=== PATIENT | female | born 1985 | race Caucasian/White ===

== ENCOUNTER 2023-04-09 09:19 | Emergency (ER) | payer OTHER, SELFPAY ==
[2023-04-09] VITALS (7 sets, daily range): BP systolic 108–142; BP diastolic 66–81
--- NOTE | 2023-04-09 09:38 | ED.GENMED ---
History of Present Illness
General
Chief Complaint: Abdominal Pain
Source: patient
Exam Limitations: none
Time Seen by Provider: 04/09/23 09:29
Nursing documentation reviewed up to this point in time: agreed with
Travel History
Have you had any contact with someone who has COVID-19?: No
Do you have any symptoms of coronavirus? Fever > 100 degrees, chills, cough, shortness of breath, sore throat, loss of taste or smell, muscle aches, or headache?: No
History of Present Illness
History of Present Illness:
Patient presents to ED secondary to persistent lower abdominal pain associated with nausea, vomiting, and diarrhea. Abdominal pain described as crampy, nonradiating, without any alleviating or exacerbating factors. Denies fever or chills. Denies
trauma. Denies difficulty with urination. Denies loss of appetite. Denies recent illness. Denies recent change in medications or diet. Denies previous history of similar symptoms. Patient does have history of cervical cancer, which was treated
last year with radiation therapy only. As a result, patient has not had her menstrual cycle since last summer. Patient is currently cancer free and not receiving any maintenance medication.
Past History
Past History
ED Past Medical History: Other (Anemia)
ED Past Surgical History: None
Social History
Tobacco: Non-smoker
Drug: None
Living: with family
Employment: Employed
Review of Systems
Review of Systems
Allergies reviewed?: Yes
All Other Systems: ROS reviewed and negative except as documented in HPI and ROS
Constitutional: Reports no symptoms; Denies fever
Respiratory: Reports no symptoms
Cardiac: Reports no symptoms
ABD/GI: Reports abdominal pain, nausea, vomiting and diarrhea
: Reports no symptoms
Musculoskeletal: Reports no symptoms
Skin: Reports no symptoms
Neurological: Reports no symptoms
Phy Exam
Physical Exam
Physical Exam:
Physical Exam
General: mild distress, not acutely ill. afebrile
Head: nc/at. eomi
Neck: supple. no meningeal signs.
Heart: s1/s2 regular rate and rhythm, no murmur. equal radial pulses.
Lungs: no acute respiratory distress. clear bilaterally
Abdomen: normal bowel sounds. no focal tenderness to palpation. no distention
Neuro: alert and oriented. no focal neurological deficits
Skin: no rash
Psychiatric: well kept. interactive and cooperative
Extremities: no edema. no calf tenderness.
Course
Orders/Labs/Results
Orders:
Orders
04/09/23 09:37
US Pelvis W Transvag Combined Urgent
Comment:
Reason For Exam: RLQ pain
04/09/23 09:38
0.9% Sodium Chloride 500 ml [Nss] 500 ml IV BOLUS
Test Result ONCE
04/09/23 09:57
Basic Metabolic Panel Urgent
Complete Blood Count/With Diff Urgent
HCG, Serum Qualitative Screen Urgent
Urinalysis Reflex To Culture Urgent
Date Specimen was Collected: 04/09/23
Time Specimen was Collected: 09:55
Urine Microscopic Reflex Cult Urgent
04/09/23 10:51
Ketorolac [Toradol] 15 mg IV NOW STA
Abnormal Lab Results
04/09/23
09:57
WBC 4.6 L 10^3/uL
(4.8-10.8)
RBC 4.01 L 10^6/uL
(4.20-5.40)
Hct 36.4 L %
(37.0-47.0)
MCH 33.2 H pg
(27.0-31.0)
Absolute Lymphs (auto) 0.5 L 10^3/uL
(1.2-3.4)
Neutrophils % 83.5 H %
(42.2-75.2)
Lymphocytes % 11.2 L %
(20.5-51.1)
Glucose 160 H mg/dl
(70-99)
Leukocyte Esterase Rfl Trace A
(Negative)
Urine RBC 3-6 A /HPF
(0-2)
Urine Bacteria (Reflex) Few A
(Negative)
04/09/23 09:57
04/09/23 09:57
Vital Signs
Initial and Last Documented VS:
Initial Vital Signs
Temp Pulse Resp BP Pulse Ox
99.1 F 73 16 142/81 97
04/09/23 09:22 04/09/23 09:22 04/09/23 09:22 04/09/23 09:22 04/09/23 09:22
Last Documented Vital Signs
Temp Pulse Resp BP Pulse Ox
99.1 F 62 16 114/66 97
04/09/23 09:22 04/09/23 15:19 04/09/23 09:22 04/09/23 15:19 04/09/23 13:30
MDM/Problems Addressed
MDM/Problems Addressed:
Patient with an unremarkable workup in ED, including blood work and pelvic ultrasound. Patient reports significant treatment symptoms after treatment. Repeat abdominal exam: Soft and nontender. History and exam consistent with likely
musculoskeletal pain versus viral illness. Patient will be discharged home in stable condition, with recommendation to follow-up with PCP for reevaluation, or return to ED with worsening symptoms, i.e. fever/worsening pain/vomiting. Patient
expresses understanding at time of discharge, to the care of her .
*Critical Care Note
Total Time (30-74mins, 75-104mins- exclusive of procedures): Not Applicable
ED Attending Note
-
Portions of this chart may have been created with voice recognition software.� Occasional wrong word or��sound alike� substitutions may have occurred due to the inherent limitations of voice recognition software.
Discharge Plan
Departure
Patient Disposition: Home (Routine Discharge)
Date of Disposition: 04/09/23
Time of Disposition: 15:09
Patient with high blood pressure during this ER visit?: Yes
Condition: Good
Discharge Problem:
Abdominal pain
Instructions: Abdominal Pain
Prescriptions:
No Action
multivitamin [One-A-Day Essential] 1 EACH tablet
1 ea PO QPM
sertraline 25 MG tablet
50 mg PO QPM
Iron
1 tab PO QPM
Referrals:
Clau Echols MD [Family Provider] -
Activity Restrictions/Additional Instructions:
As discussed, please follow-up with your primary care physician with any further concerns. Please return to ED with worsening symptoms, i.e. fever/worsening pain/vomiting.
Interventions
Interventions:
*Risk Screen - Suicide Last Done: 04/09/23 09:22
*General Assessment Last Done: 04/09/23 09:59
*Neglect/Abuse Screening Last Done: 04/09/23 09:22
ED- Fall Risk Assessment Last Done: 04/09/23 10:32
*ED COVID-19 Vaccine History Last Done: 04/09/23 09:22
*Nursing Disposition Last Done: 04/09/23 15:19
ZP-Mlnavw-Krgbhmyzzz Assessment Last Done: 04/09/23 09:59
Discharge Date and Time
Discharge Date/Time: 04/09/23 15:20
[2023-04-09] MEDS: NSS 500 IV (09:54)
[2023-04-09 10:06] LABS: % Basophils 0.2 % (0-2); % Eosinophils 0.6 % (0-6); % Immature Granulocytes 0.2 % (0-0.5); % Lymphocytes 11.2 % (20.5-51.1); % Monocytes 4.3 % (1.7-9.3); % Neutrophils 83.5 % (42.2-75.2); Absolute Lymphocytes 0.5 10^3/uL (1.2-3.4); Absolute Monocytes 0.2 10^3/uL (0.1-0.6); Absolute Neutrophils 3.9 10^3/uL (1.4-6.5); Hematocrit 36.4 % (37.0-47.0); Hemoglobin 13.3 g/dL (12.0-16.0); Mean Corp Hgb Conc. 36.5 g/dL (33.0-37.0); Mean Corpuscular Hgb 33.2 pg (27.0-31.0); Mean Corpuscular Volume 90.8 fL (81.0-99.0); Mean Platelet Volume 8.3 fL (7.4-10.4); Nucleated Red Blood Cells % 0 %; Platelet Count 207 10^3/uL (130-400); Red Blood Cell Count 4.01 10^6/uL (4.20-5.40); Red Cell Dist. Width 11.5 % (11.5-14.5); White Blood Cell Count 4.6 10^3/uL (4.8-10.8)
[2023-04-09 10:08] LABS: Urine Albumin Negative (Neg - Trace); Urine Bilirubin Negative (Negative); Urine Character Clear (Clear); Urine Color Yellow; Urine Glucose Negative (Negative); Urine Ketone Negative (Negative); Urine Leukocyte Trace (Negative); Urine Nitrite Negative (Negative); Urine Occult Blood Negative (Negative); Urine Urobilinogen Negative (Neg - 1+)
[2023-04-09 10:14] LABS: HCG, Serum Qualitative Screen Negative
[2023-04-09 10:16] LABS: Blood Urea Nitrogen 17 mg/dl (7-17); Carbon Dioxide 29 mmol/L (22-30); Chloride 103 mmol/L (98-107); Glucose 160 mg/dl (70-99); Sodium 136 mmol/L (135-145); eGFR > 60.00
[2023-04-09 10:23] LABS: Urine Amorphous Seen; Urine Mucus Moderate
[2023-04-09 10:24] LABS: Urine Bacteria Few (Negative)
[2023-04-09] MEDS: TORADOL 15 MG IV (10:55)
== END 2023-04-09 15:20 | disposition home or self-care (01) ==
LOC: EMR 09:19
PROVIDERS: EMERGENCY PHYSICIAN Emergency Medicine; FAMILY PHYSICIAN Family Medicine
DX: R10.9 Unspecified abdominal pain (principal); R11.2 Nausea with vomiting, unspecified; R19.7 Diarrhea, unspecified; R03.0 Elevated blood-pressure reading, without diagnosis of hypertension; Z85.41 Personal history of malignant neoplasm of cervix uteri
CPT/HCPCS: 99284; 96374; 96361; 76830; 76856; 80048; 81003; 81015; 84703; 85025

== ENCOUNTER 2023-05-19 18:34 | Emergency (ER) | payer OTHER, SELFPAY ==
[2023-05-19 18:50] VITALS: BP 117/68
[2023-05-19 19:13] LABS: % Basophils 0.3 % (0-2); % Eosinophils 4.5 % (0-6); % Immature Granulocytes 0.3 % (0-0.5); % Lymphocytes 19.9 % (20.5-51.1); % Monocytes 7.6 % (1.7-9.3); % Neutrophils 67.4 % (42.2-75.2); Absolute Eosinophils 0.2 10^3/uL (0-0.7); Absolute Lymphocytes 0.8 10^3/uL (1.2-3.4); Absolute Monocytes 0.3 10^3/uL (0.1-0.6); Absolute Neutrophils 2.7 10^3/uL (1.4-6.5); Hematocrit 34.4 % (37.0-47.0); Hemoglobin 12.4 g/dL (12.0-16.0); Mean Corpuscular Hgb 33.2 pg (27.0-31.0); Mean Corpuscular Volume 92.2 fL (81.0-99.0); Mean Platelet Volume 8.3 fL (7.4-10.4); Nucleated Red Blood Cells % 0 %; Platelet Count 198 10^3/uL (130-400); Red Blood Cell Count 3.73 10^6/uL (4.20-5.40); Red Cell Dist. Width 11.8 % (11.5-14.5)
[2023-05-19 19:32] LABS: ALT (SGPT) 17 U/L (0-35); AST (SGOT) 24 U/L (14-36); Albumin 4.1 g/dl (3.5-5.0); Alkaline Phosphatase 70 U/L (38-126); Blood Urea Nitrogen 11 mg/dl (7-17); Calcium 9.5 mg/dl (8.4-10.2); Carbon Dioxide 29 mmol/L (22-30); Chloride 102 mmol/L (98-107); Glucose 115 mg/dl (70-99); Potassium 3.7 mmol/L (3.5-5.1); Sodium 139 mmol/L (135-145); Total Bilirubin 0.8 mg/dl (0.2-1.3); Total Protein 6.3 g/dl (6.3-8.2); eGFR > 60.00
[2023-05-19 19:37] LABS: Troponin I < 0.012 ng/ml
[2023-05-19 19:53] VITALS: BP 101/83
--- NOTE | 2023-05-19 19:58 | ED.GENMED ---
History of Present Illness
General
Chief Complaint: Chest Pain
Source: patient
Exam Limitations: none
Time Seen by Provider: 05/19/23 19:46
Travel History
Have you had any contact with someone who has COVID-19?: No
Do you have any symptoms of coronavirus? Fever > 100 degrees, chills, cough, shortness of breath, sore throat, loss of taste or smell, muscle aches, or headache?: Yes
Symptoms:: persistant cough
History of Present Illness
History of Present Illness:
This is a 37 year old female that comes in with c/o right mid back that wraps around to the front. Patient went to and was told that her ECG was abnormal and sent to the ER. States that she started with a cough on and was on a Z-pack
and another antibiotic that she doesn't remember the name. States that the cough is almost gone at this time. Denies any fever, chills, chest pain, SOB, abd pain, nausea, vomiting, diarrhea, headache, dizziness, urinary burning.
Past History
Past History
ED Past Medical History: Cancer (Cervical cancer with chemo and radiation), Psychiatric (Anxiety) and Other (Anemia)
ED Past Surgical History: None
Social History
Tobacco: Former smoker
Alcohol: Occasional
Drug: None
Personal:
Living: with family
Employment: Employed
Review of Systems
Review of Systems
All Other Systems: ROS reviewed and negative except as documented in HPI and ROS
Constitutional: Reports no symptoms; Denies fever or chills
EENT: Reports no symptoms
Respiratory: Denies cough or trouble breathing
Cardiac: Reports no symptoms; Denies chest pain
ABD/GI: Denies abdominal pain, nausea, vomiting or diarrhea
: Reports no symptoms; Denies dysuria, frequency or urgency
Musculoskeletal: Reports back pain (Mid back that wrap around to the front. )
Skin: Reports no symptoms
Neurological: Reports no symptoms; Denies dizzy or headache
Psychiatric: Reports no symptoms
Phy Exam
General Physical Exam
General Presentation: well appearing and no apparent distress
General age: appears stated age
General Skin: warm and dry
General Habitus: normal
General Mental: alert
General Hydration: appears well hydrated
ENT Exam
ENT Exam: TM's normal, pharynx normal and neck supple
Eye Exam
Eye Exam: EOMI
Cardiovascular Exam
Cardiovascular Exam: regular rate/rhythm, no edema, no murmur and normal peripheral pulses
Pulmonary Exam
Pulmonary Exam: lungs clear, no respiratory distress, no rales, chest non tender, no crackles, no rhonchi, no wheezing and no cough
Gastrointestinal Exam
Gastrointestinal Exam: normal bowel sounds, non tender, soft, no organomegaly, no pulsatile mass and non distended
Musculoskeletal Exam
Musculoskeletal Exam: full ROM and no edema
Skin Exam
Skin Exam: normal color, warm/dry, no rash and no petechia
Psychiatric Exam
Psychiatric Exam: normal mood/affect
Scores
Heart Score for Chest Pain Patients
STEMI patient?: Not applicable
Course
Orders/Labs/Results
Orders:
Orders
05/19/23 18:57
Electrocardiogram (*1) Urgent
Reason for Study: Chest Pain
Other Reason for Exam: right chest pain
Cardiology Consult: Unknown
CR Chest - 2 Views Urgent
Comment:
Reason For Exam: persistant cough and right chest./back pain
05/19/23 18:58
EKG- Treatment ONCE
05/19/23 19:08
Complete Blood Count/With Diff Urgent
Comprehensive Metabolic Panel Urgent
Troponin I Urgent
05/19/23 19:57
US Abdomen Complete/Upper Urgent
Comment:
Reason For Exam: Right upper abd pain
05/19/23 23:24
Urinalysis Reflex To Culture Urgent
Date Specimen was Collected: 05/19/23
Time Specimen was Collected: 23:22
Urine Microscopic Reflex Cult Urgent
Urine Culture Urgent
SUE Source: U
Specimen Description:
Date Specimen was Collected: 05/19/23
Time Specimen was Collected: 23:22
05/20/23 00:27
CefTRIAXone [Rocephin] 1,000 mg IV NOW STA
Abnormal Lab Results
05/19/23 05/19/23
19:08 23:24
WBC 4.0 L 10^3/uL
(4.8-10.8)
RBC 3.73 L 10^6/uL
(4.20-5.40)
Hct 34.4 L %
(37.0-47.0)
MCH 33.2 H pg
(27.0-31.0)
Absolute Lymphs (auto) 0.8 L 10^3/uL
(1.2-3.4)
Lymphocytes % 19.9 L %
(20.5-51.1)
Glucose 115 H mg/dl
(70-99)
Leukocyte Esterase Rfl 2+ A
(Negative)
Urine WBC (Reflex) 11-15 A /HPF
(0-5)
Urine Bacteria (Reflex) Moderate A
(Negative)
05/19/23 19:08
05/19/23 19:08
WBC very slightly low. Glucose nonfasting. Troponin <0.012, Urine positive for infection.
Vital Signs
Initial and Last Documented VS:
Initial Vital Signs
Temp Pulse Resp BP Pulse Ox
97.6 F 56 20 117/68 99
05/19/23 18:50 05/19/23 18:50 05/19/23 18:50 05/19/23 18:50 05/19/23 18:50
Last Documented Vital Signs
Temp Pulse Resp BP Pulse Ox
97.6 F 57 16 101/72 97
05/19/23 18:50 05/19/23 23:30 05/19/23 23:30 05/19/23 23:24 05/19/23 23:30
MDM/Problems Addressed
Differential Diagnosis Includes:
Gallbladder disease, PNA,
MDM/Problems Addressed:
This is a 37 year old female that comes in with c/o pain on the right mid back that wraps around to the flank. States that she went to and they did an ECG and told her it was abnormal to come to the ER.
Will check labs, US and chest x-ray.
back into see patient. Explained that her chest X-ray is normal. Her Ultrasound is normal. This may be a pulled muscle from her coughing. Patient is giving a urine at this time will check for any blood.
Back into see patient. Explained that her urine shows infection. Questioned patient about her possible allergy to Amoxicillin and states that they were not sure if she really had an allergy. This may be a kidney infection and this would explain her
pain. Will give IV Antibiotic and put on oral antibiotics for home. Patient to return with any fever, increased or changing pain. Follow up with the family doctor.
Chronic conditions affecting care:
NA
Acute Exacerbation and/or Progression of Chronic Illness:
NA
*Radiology
Radiology exam reviewed: radiology read reviewed (Chest- Unremarkable exam. US=Unremarkable abdominal ultrasound)
*Pulse Oximetry
Patient hypoxic: no
*EKG
Interpreted by ED Provider?: Yes
Heart Rate: 58
Rate: bradycardiac
Rhythm: sinus arrhythmia
Plains: normal axis
Interval: normal interval
QRS Pattern: normal QRS
Ischemia: T-wave inversion (aVAR, V2, )
*Preschool Assistant Interpretation
Rate: normal
Heart Rate: 63
Rhythm: sinus
*Critical Care Note
Total Time (30-74mins, 75-104mins- exclusive of procedures): Not Applicable
ED Attending Note
-
Portions of this chart may have been created with voice recognition software.� Occasional wrong word or��sound alike� substitutions may have occurred due to the inherent limitations of voice recognition software.
Discharge Plan
Departure
Patient Disposition: Home (Routine Discharge)
Date of Disposition: 05/20/23
Time of Disposition: 00:30
Patient with high blood pressure during this ER visit?: No
Condition: Good
Covid-19: Not Applicable
Discharge Problem:
Urinary tract infection, Possible Kidney infection
Instructions: Kidney Infection (DC)
Prescriptions:
New
cefdinir 300 mg capsule
300 mg PO BID Qty: 14 0RF
No Action
multivitamin [One-A-Day Essential] 1 EACH tablet
1 ea PO QPM
sertraline 25 MG tablet
50 mg PO QPM
Iron
1 tab PO QPM
Referrals:
Clau Echols MD [Family Provider] - Call in 1-3 days for appt
Activity Restrictions/Additional Instructions:
As discussed, your blood work is normal. Your US and chest x-ray are normal. However, you have a urinary tract infection. This may be a kidney infection due to were you pain is located. Please increase your water intake to 8-8oz glasses daily. You
have been given IV antibiotic here and a prescription for home. Your prescription has been sent to your Pharmacy. Follow up with the family doctor for recheck. IF YOU HAVE FEVER, INCREASED OR CHANGING PAIN, OR YOU HAVE ANY OTHER CONCERNS PLEASE
RETURN TO THE EMERGENCY ROOM.
Interventions
Interventions:
*Risk Screen - Suicide Last Done: 05/19/23 18:50
*General Assessment Last Done: 05/19/23 18:50
*Neglect/Abuse Screening Last Done: 05/19/23 18:50
ED- Fall Risk Assessment Last Done: 05/19/23 18:50
*ED COVID-19 Vaccine History Last Done: 05/19/23 18:50
ED- Cardiac Assessment Last Done: 05/19/23 19:51
ED- Pulmonary Assessment Last Done: 05/19/23 19:51
Discharge Date and Time
Print Language: [id number]
[2023-05-19 20:00] VITALS: BP 117/77
[2023-05-19 21:39] VITALS: BP 112/73
[2023-05-19 22:00] VITALS: BP 104/75
[2023-05-19 23:24] VITALS: BP 101/72
[2023-05-19 23:30] LABS: Urine Albumin Negative (Neg - Trace); Urine Bilirubin Negative (Negative); Urine Character Clear (Clear); Urine Color Yellow; Urine Glucose Negative (Negative); Urine Ketone Negative (Negative); Urine Leukocyte 2+ (Negative); Urine Nitrite Negative (Negative); Urine Occult Blood Negative (Negative); Urine Specific Gravity 1.015 (<1.030); Urine Urobilinogen Negative (Neg - 1+)
[2023-05-20 00:11] LABS: Urine Squamous Cell 0-2 /LPF (Few)
[2023-05-20 00:13] LABS: Urine Bacteria Moderate (Negative); Urine Red Blood Cell 0-2 /HPF (0-2)
[2023-05-20] MEDS: ROCEPHIN 1000 MG IV (00:31)
== END 2023-05-20 01:10 | disposition home or self-care (01) ==
LOC: EMR 18:34
PROVIDERS: Clinical Nurse Specialist Family Health; Emergency Medicine; EMERGENCY PHYSICIAN Emergency Medicine; FAMILY PHYSICIAN Family Medicine
DX: N39.0 Urinary tract infection, site not specified (principal); F41.9 Anxiety disorder, unspecified; Z85.41 Personal history of malignant neoplasm of cervix uteri; Z87.891 Personal history of nicotine dependence
CPT/HCPCS: 99284; 71046; 76700; 80053; 81003; 81015; 84484; 85025; 87086; 93005

== ENCOUNTER 2024-08-22 13:08 | Outpatient (RCR) | payer OTHER, SELFPAY | END 2024-08-22 23:59 | disposition home or self-care (01) | LOC: RPT 13:08 | PROVIDERS: ATTENDING PHYSICIAN Student in an Organized Health Care Education/Training Program; FAMILY PHYSICIAN Family Medicine | DX: M79.671 Pain in right foot (principal); M54.16 Radiculopathy, lumbar region | CPT/HCPCS: 97110; 97140; 97162; 97535 ==

== ENCOUNTER → 2024-09-12 06:58 | Outpatient (REF) | payer OTHER, SELFPAY | LOC: MRI 3T 06:58 | PROVIDERS: ATTENDING PHYSICIAN Podiatrist Foot Surgery; FAMILY PHYSICIAN Family Medicine | DX: M72.2 Plantar fascial fibromatosis (principal); M20.60 Acquired deformities of toe(s), unspecified, unspecified foot | CPT/HCPCS: 73718 ==

== ENCOUNTER 2024-09-13 13:15 | Outpatient (RCR) | payer OTHER, SELFPAY | END 2024-09-13 23:59 | disposition home or self-care (01) | LOC: RPT 13:15 | PROVIDERS: ATTENDING PHYSICIAN Student in an Organized Health Care Education/Training Program; FAMILY PHYSICIAN Family Medicine | DX: M79.671 Pain in right foot (principal); M54.16 Radiculopathy, lumbar region | CPT/HCPCS: 97110; 97140 ==